=== PATIENT | female | born 1950 | race Caucasian/White ===

== ENCOUNTER 2019-01-07 22:38 | Emergency (ER) | payer MEDICARE ==
[~2019-01-07] VITALS: Ht 160 cm; Wt 64.5 kg
[2019-01-07 22:47] VITALS: BP 134/60
[2019-01-07] MEDS ORDERED: LORazepam 0.5MG TABLET ONE (23:27)
[2019-01-07 23:29] LABS: BASOPHILS # (AUTO) 0.04 x10^3/uL (0-0.1); BASOPHILS % (AUTO) 0 % (0-1); EOSINOPHILS % (AUTO) 2 % (1-7); LYMPHOCYTES # (AUTO) 3.31 x10^3/uL (1-3.4); LYMPHOCYTES % (AUTO) 39 % (22-44); MD NO; MEAN CORPUSCULAR HEMOGLOBIN 30.8 pg (27.0-34.8); MEAN CORPUSCULAR HGB CONC 33.4 g/dL (32.4-35.8); MEAN CORPUSCULAR VOLUME 92.3 fL (80-100); MEAN PLATELET VOLUME 7.9 fL (7.4-10.4); MONOCYTES % (AUTO) 6 % (2-9); NEUTROPHILS # (AUTO) 4.37 x10^3/uL (1.8-6.8); NEUTROPHILS % (AUTO) 52 % (42-75); PLATELET COUNT 165 x10^3/uL (130-400); RED CELL DISTRIBUTION WIDTH 13.6 % (9.6-15.2)
[2019-01-07] MEDS ORDERED: LORazepam 0.5MG TABLET PO ONE (23:30)
--- NOTE | 2019-01-07 23:30 | NUR ---
PT MEDICATED ORDERED.
[2019-01-07 23:36] LABS: ALANINE AMINOTRANSFERASE 21 U/L (12-78); ALBUMIN 3.8 g/dL (3.4-5.0); ANION GAP 6 mmol/L (5-15); CALCIUM 9.2 mg/dL (8.5-10.1); CHLORIDE 110 mmol/L (98-107); CREATININE 0.69 mg/dL (0.55-1.02); SALICYLATE LEVEL 3.7 mg/dL (2.8-20.0)
[2019-01-07 23:39] LABS: ALKALINE PHOSPHATASE 65 U/L (45-117); BILIRUBIN,TOTAL 0.5 mg/dL (0.2-1.0); TOTAL PROTEIN 7.3 g/dL (6.4-8.2)
--- NOTE | 2019-01-08 00:39 | NUR ---
URINE TO LAB AND PT AWAITING TELE PSYCH EVAL.
[2019-01-08 00:58] LABS: AMPHETAMINE SCREEN, URINE Negative (Negative); BARBITURATE SCREEN, URINE Negative (Negative); BENZODIAZEPINE SCREEN, URINE Negative (Negative); CANNABINOID SCREEN, URINE Negative (Negative); COCAINE SCREEN, URINE Negative (Negative); METHADONE SCREEN, URINE Negative (Negative); OPIATE SCREEN, URINE Negative (Negative)
--- NOTE | 2019-01-08 01:01 | NUR ---
PT TALKING TO TELE PSYCH
== END 2019-01-08 01:51 ==
LOC: ED 01-08 00:18
DX: F41.8 Other specified anxiety disorders (principal); F17.210 Nicotine dependence, cigarettes, uncomplicated; Z72.89 Other problems related to lifestyle
CPT/HCPCS: 36415; 80053; 80307; 85025; 99284